=== PATIENT | female | born 1995 | race Hispanic/Latino ===

== ENCOUNTER 2021-12-02 17:03 | Day surgery (SDC) | payer OTHER, SELFPAY ==
[2021-12-02] MEDS ORDERED: hydrALAZINE 20 MG/ML VIAL SLOW IVP PRN (18:06)
[2021-12-02] MEDS ORDERED: Lactated Ringer's 1,000 ML IV SCH (18:15)
== END 2021-12-02 20:20 | disposition home or self-care (01) ==
LOC: CSHLD/OP 17:03
PROVIDERS: ATTEND Family Medicine
DX: O36.5930 Maternal care for other known or suspected poor fetal growth, third trimester, not applicable or unspecified (principal); O10.913 Unspecified pre-existing hypertension complicating pregnancy, third trimester; O24.410 Gestational diabetes mellitus in pregnancy, diet controlled; O99.213 Obesity complicating pregnancy, third trimester; Z79.82 Long term (current) use of aspirin; Z3A.31 31 weeks gestation of pregnancy
CPT/HCPCS: 76819; 87081; 96360; 99282

== ENCOUNTER 2021-12-06 11:03 | Day surgery (SDC) | payer OTHER ==
[2021-12-06 11:31] VITALS: BMI 39.4
[2021-12-06] MEDS ORDERED: hydrALAZINE 20 MG/ML VIAL SLOW IVP PRN (12:28)
[2021-12-06 13:45] LABS: #Basophils 0.1 10x3/uL (0.0-0.2); #Eosinphils 0.1 10x3/uL (0.0-0.5); #Monocytes 0.6 10x3/uL (0.0-1.1); #Neutrophils 4.7 10x3/uL (1.5-8.4); %Basophils 0.7 % (0.0-2.0); %Eosinophils 0.8 % (0.0-6.0); %Lymphocytes 26.8 % (18.0-47.0); %Monocytes 8.1 % (0.0-10.0); %Neutrophils 63.5 % (40.0-75.0); Hemoglobin 12.4 g/dL (12.0-15.5); Mean Corpuscular HGB CONC 33.1 g/dL (32.0-36.0); Mean Corpuscular Hemoglobin 29.8 pg (27.0-33.0); Mean Corpuscular Volume 90.1 fl (81.6-98.3); Mean Platelet Volume 11.7 fl (7.4-10.4); Platelet Count 200 10x3/uL (150-450); RBC Distribution Width 13.6 % (11.5-14.5); Red Blood Cell (RBC) Count 4.16 10x6/uL (3.90-5.03); White Blood Cell (WBC) Count 7.4 10x3/uL (3.5-10.5)
[2021-12-06 13:54] LABS: ALT (SGPT) 14 U/L (8-55); AST (SGOT) 16 U/L (5-34); Albumin 3.1 g/dL (3.5-5.0); Alkaline Phosphatase 162 U/L (40-110); Anion Gap 14 mmol/L (10-20); BUN (Urea Nitrogen) 7 mg/dL (7.0-18.7); Bilirubin, Total 0.2 mg/dL (0.2-1.2); Calc. Creatinine Clearance 182 mL/min (70-130); Calcium 9.1 mg/dL (7.8-10.44); Carbon Dioxide 22 mmol/L (22-29); Chloride 105 mmol/L (98-107); Estimated GFR 125; Globulin 3.6 g/dL (2.4-3.5); Glucose 70 mg/dL (70-105); Potassium 3.8 mmol/L (3.5-5.1); Protein, Total 6.7 g/dL (6.0-8.3); Sodium 137 mmol/L (136-145)
[2021-12-06 13:57] LABS: Creatinine, Urine 139.02 mg/dL (47-110)
== END 2021-12-06 14:40 | disposition home or self-care (01) ==
LOC: CSHLD/OP 11:03
PROVIDERS: ATTEND Obstetrics & Gynecology
DX: O10.913 Unspecified pre-existing hypertension complicating pregnancy, third trimester (principal); O24.410 Gestational diabetes mellitus in pregnancy, diet controlled; O36.5930 Maternal care for other known or suspected poor fetal growth, third trimester, not applicable or unspecified; O99.213 Obesity complicating pregnancy, third trimester; Z3A.36 36 weeks gestation of pregnancy; Z79.82 Long term (current) use of aspirin
CPT/HCPCS: 80053; 82570; 84156; 85025

== ENCOUNTER 2021-12-09 13:33 | Inpatient (IN) | payer OTHER ==
[2021-12-09 14:02] VITALS: BMI 39.2
[2021-12-09] MEDS ORDERED: Carboprost 250 MCG/ML AMP IM PRN (14:47)
[2021-12-09] MEDS ORDERED: Ibuprofen 800 MG TAB PO PRN (14:47)
[2021-12-09] MEDS ORDERED: Misoprostol 200 MCG TAB PR PRN (14:47)
[2021-12-09] MEDS ORDERED: Butorphanol Tartrate 1 MG/ML VIAL SLOW IVP PRN (14:47)
[2021-12-09] MEDS ORDERED: hydrALAZINE 20 MG/ML VIAL SLOW IVP PRN (14:47)
[2021-12-09] MEDS ORDERED: Lidocaine 1% (PF) 30 ML VIAL SC PRN (14:47)
[2021-12-09] MEDS ORDERED: Promethazine HCl 25 MG/ML VIAL IM PRN (14:47)
[2021-12-09] MEDS ORDERED: Ondansetron PF 4 MG/2 ML Vial IVP PRN (14:47)
[2021-12-09] MEDS ORDERED: Acetaminophen 500 MG TAB PO PRN (14:47)
[2021-12-09] MEDS ORDERED: NS w/ Oxytocin 30 units 500 ML IV SCH ×2 (15:00)
[2021-12-09] MEDS: Misoprostol 100 MCG TAB VAG SCH (15:03)
[2021-12-09] MEDS ORDERED: Misoprostol 100 MCG TAB ONE (15:03)
[2021-12-09] MEDS: Lactated Ringer's 1,000 ML IV SCH (15:27)
[2021-12-09 15:42] LABS: Mean Corpuscular HGB CONC 33.4 g/dL (32.0-36.0); Mean Corpuscular Hemoglobin 29.9 pg (27.0-33.0); Mean Corpuscular Volume 89.3 fl (81.6-98.3); Platelet Count 216 10x3/uL (150-450); RBC Distribution Width 13.8 % (11.5-14.5); Red Blood Cell (RBC) Count 4.02 10x6/uL (3.90-5.03); White Blood Cell (WBC) Count 6.6 10x3/uL (3.5-10.5)
[2021-12-09 16:00] LABS: ALT (SGPT) 11 U/L (8-55); AST (SGOT) 17 U/L (5-34); Albumin 3.1 g/dL (3.5-5.0); Alkaline Phosphatase 163 U/L (40-110); Anion Gap 15 mmol/L (10-20); BUN (Urea Nitrogen) 9 mg/dL (7.0-18.7); Bilirubin, Total 0.2 mg/dL (0.2-1.2); Calc. Creatinine Clearance 164 mL/min (70-130); Carbon Dioxide 21 mmol/L (22-29); Chloride 106 mmol/L (98-107); Estimated GFR 122; Globulin 3.2 g/dL (2.4-3.5); Glucose 116 mg/dL (70-105); Potassium 3.8 mmol/L (3.5-5.1); Protein, Total 6.3 g/dL (6.0-8.3); Sodium 138 mmol/L (136-145)
[2021-12-09 16:18] LABS: Hep B Surf Ag Non-Reactive S/CO (NonReactive); Syphilis Antibody Nonreactive (Nonreactive); Syphilis Antibody Index 0.04 S/CO (<1.00 Non-Reactive)
[2021-12-09 16:36] LABS: HBSAg Index 0.17 S/CO (0-0.99)
[2021-12-09 17:01] LABS: SARS-CoV-2 NAA Rapid Test Not Detected (NotDetected)
[2021-12-09 17:06] LABS: Creatinine, Urine 188.74 mg/dL (47-110)
[2021-12-10] MEDS: Lactated Ringer's 1,000 ML IV SCH ×2 (05:03→11:36)
[2021-12-10] MEDS ORDERED: Butorphanol Tartrate 1 MG/ML VIAL ONE (08:27)
[2021-12-10] MEDS ORDERED: Milk Of Magnesia 30 ML UDCUP PO PRN (11:16)
[2021-12-10] MEDS ORDERED: hydrALAZINE 20 MG/ML VIAL SLOW IVP PRN (11:16)
[2021-12-10] MEDS ORDERED: Preparation H Ointment 28 GM TUBE PR PRN (11:16)
[2021-12-10] MEDS ORDERED: Ondansetron PF 4 MG/2 ML Vial IVP PRN (11:16)
[2021-12-10] MEDS ORDERED: Lanolin Ointment 7 GM TUBE TOP PRN (11:16)
[2021-12-10] MEDS ORDERED: Ibuprofen 800 MG TAB PO PRN (11:16)
[2021-12-10] MEDS: Misoprostol 100 MCG TAB VAG SCH ×2 (11:35→11:36)
[2021-12-10] MEDS: Ferrous Sulfate 325 MG TAB PO SCH (11:37)
[2021-12-10] MEDS ORDERED: NS w/ Oxytocin 30 units 500 ML ONE (13:02)
[2021-12-10] MEDS: Docusate 100 MG CAP PO SCH (21:17)
[2021-12-11] MEDS: Ferrous Sulfate 325 MG TAB PO SCH (07:31)
[2021-12-11] MEDS: Docusate 100 MG CAP PO SCH ×2 (09:27→21:45)
[2021-12-11] MEDS: Prenatal Vitamin 1 TAB PO SCH (09:27)
[2021-12-11] MEDS ORDERED: Boostrix 0.5 ML (Tdap) VIAL IM ONE (11:16)
[2021-12-12] MEDS: Ferrous Sulfate 325 MG TAB PO SCH (07:38)
[2021-12-12] MEDS: Prenatal Vitamin 1 TAB PO SCH (08:52)
[2021-12-12] MEDS: Docusate 100 MG CAP PO SCH (08:52)
[2021-12-12 11:57] VITALS: BP 131/78; TEMP 98
== END 2021-12-12 13:15 | disposition home or self-care (01) | DRG 807 ==
LOC: CSHLD/OP 13:33 → CSHLD 15:43 → CSHPP 12-10 13:14
PROVIDERS: ADMIT Family Medicine; ATTEND Family Medicine
PROC: 3E0P7VZ Introduction of Hormone into Female Reproductive, Via Natural or Artificial Opening (ICD-10-PCS; 2021-12-09)
PROC: 3E033VJ Introduction of Other Hormone into Peripheral Vein, Percutaneous Approach (ICD-10-PCS; 2021-12-09)
PROC: 10E0XZZ Delivery of Products of Conception, External Approach (ICD-10-PCS; principal; 2021-12-10)
DX: O10.92 Unspecified pre-existing hypertension complicating childbirth (principal); Z37.0 Single live birth; Z20.822 Contact with and (suspected) exposure to COVID-19; Z3A.37 37 weeks gestation of pregnancy; O24.429 Gestational diabetes mellitus in childbirth, unspecified control; Z79.899 Other long term (current) drug therapy; Z79.82 Long term (current) use of aspirin; O36.5930 Maternal care for other known or suspected poor fetal growth, third trimester, not applicable or unspecified; O42.02 Full-term premature rupture of membranes, onset of labor within 24 hours of rupture
CPT/HCPCS: 36415; 36416; 80053; 82570; 84156; 85027; 86780; 86850; 86900; 86901; 87340; J0595; J2590; J7120; U0002